=== PATIENT | female | born 1995 | race Caucasian/White ===

== ENCOUNTER 2018-05-23 20:41 | Emergency (ER) | payer OTHER, BC ==
[2018-05-23 20:54] VITALS: TEMP 97.6
[2018-05-23] MEDS ORDERED: KETOROLAC 30 MG/ML 1 ML VIAL IM STA (21:22)
[2018-05-23] MEDS ORDERED: CYCLOBENZAPRINE 10MG STARTER 3 TAB BTL PO STA (21:26)
[2018-05-23] MEDS ORDERED: CYCLOBENZAPRINE 10 MG TAB PO SCH (21:30)
--- NOTE | 2018-05-23 21:53 | XR ---
EXAMINATION TYPE: XR spine complete AP and Lat DATE OF EXAM: 05/23/2018 COMPARISON: NONE HISTORY: Back pain TECHNIQUE: 9 views FINDINGS: Cervical vertebra have fairly normal spacing and alignment. Posterior elements are intact. Thoracic and lumbar vertebra have normal spacing and alignment. Posterior elements are intact. There is no thoracic paraspinal mass. There is no compression fracture. Sacroiliac joints appear normal. At lantoaxial facet joint is normal. There are no cervical ribs. IMPRESSION: Negative cervical thoracic and lumbar spine exam. No fracture.
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
[2018-05-23 22:31] VITALS: BP 131/85; PULSE 65; RESP 18
== END 2018-05-23 22:30 | disposition home or self-care (01) ==
LOC: EC 20:41
DX: M54.9 Dorsalgia, unspecified (principal); R51 Headache; M62.838 Other muscle spasm; F17.200 Nicotine dependence, unspecified, uncomplicated; V89.2XXA Person injured in unspecified motor-vehicle accident, traffic, initial encounter; Y92.410 Unspecified street and highway as the place of occurrence of the external cause
CPT/HCPCS: 72082; 99284; 96372; J1885

== ENCOUNTER → 2021-01-13 | Outpatient (CLI) | payer BC | END | disposition home or self-care (01) | LOC: LABWHC1 12:15 | PROVIDERS: ATTEND Family Medicine | DX: U07.1 COVID-19 (principal) | CPT/HCPCS: U0003; C9803; U0005 ==